=== PATIENT | female | born 1960 | race Caucasian/White ===

== ENCOUNTER 2019-09-10 15:04 | Outpatient (CLI) | payer BC ==
--- NOTE | 2019-09-11 10:44 | MRI ---
MRI LEFT KNEE WITHOUT CONTRAST: Date: 09/11/2019 HISTORY: Pain. COMPARISON: Knee MRI from 2011. FINDINGS: Medial Meniscus: Maceration and loss of volume throughout the entire medial meniscal body and airline mechanic ior horn with minimal to no normal posterior horn fibers remaining. Lateral Meniscus: Mild degenerative signal within the root attachment posterior horn of lateral meni scus without displaced tear. MCL was mildly thickened. LCL intact. PCL intact. Mild interligamentous degeneration anterior cruciate ligament. There is chronic tearing of the deep medial meniscal femoral and meniscal tibial ligaments. Extensor Mechanism: Quadriceps tendon, patella, and patellar tendon are intact. There is abnormal th ickening of the suprapatellar PLICA and the medial PLICA. Cartilage: Patellofemoral compartment: There is mild 25-50% chondral fraying throughout the medial trochlea and central trochlear groove. Multifocal sub 50% chondral fissures of the medial patellar facet. Medical Compartment: Complete chondral denuding medial tibial plateau and medial femoral condyle wit h subcortical stress edema. Lateral Compartment: Mild chondral fraying of central articular surface lateral femoral condyle with small central osteophyte formation. Muscles: Muscle signal and bulk is normal. Soft Tissues: Small popliteal cyst without significant dehiscence. IMPRESSION: 1. Near complete loss of volume of the body and posterior horn medial meniscus which may be sequelae of prior meniscectomy change versus chronic tear. There is complete loss of hoop stress with cartila ge denuding in the medial compartment along with mild subcortical stress edema medial femoral condyle and medial tibial plateau. 2. Mild intraligamentous degeneration anterior cruciate ligament without full thickness rupture. 3. Mild degenerative type signal within the posterior root attachment of the lateral meniscus. 4. 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 5. 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 POS: HOME
== END 2019-09-10 15:05 | disposition home or self-care (01) ==
LOC: SCSMRI 15:04 → MERGE 16:00
PROVIDERS: ATTEND Orthopaedic Surgery
DX: M25.562 Pain in left knee (principal); M17.12 Unilateral primary osteoarthritis, left knee; M22.42 Chondromalacia patellae, left knee